=== PATIENT | female | born 1985 | race Caucasian/White ===

== ENCOUNTER 2016-08-28 16:49 | Outpatient (CLI) | payer OTHER ==
--- NOTE | 2016-08-28 18:28 | DIAGNOSTIC IMAGING REPORT ---
PROCEDURE: US OB RE-EVALUATION INDICATION: RE EVAL TECHNIQUE: Transabdominal hilton scale and color Doppler imaging was obtained of the gravid uterus. COMPARISON: OB ultrasound 06/19/2016 FINDINGS: Single live intrauterine is in vertex presentation. Regular heart rate at 140 beats per minute. Placenta is posterior and has a normal appearance without previa or abruption. The cervix is closed and measures 3.7 cm in length. Amniotic fluid volume is subjectively normal. Choroid plexus cysts seen previously have resolved. The ventricles, chest stomach bladder and kidneys are normal. IMPRESSION: 1. Single live intrauterine at 28 weeks and 4 days, SANGITA 11/16/2016 2. Choroid plexus cysts seen previously have resolved.
== END 2016-08-28 23:00 ==
LOC: US SRH 16:49
DX: Z34.80 Encounter for supervision of other normal pregnancy, unspecified trimester (principal); Z3A.28 28 weeks gestation of pregnancy

== ENCOUNTER 2016-11-15 04:45 | Inpatient (IN) | payer OTHER ==
[~2016-11-15] VITALS: Ht 152.4 cm; Wt 70.3 kg
[2016-11-15] VITALS (13 sets, daily range): BP systolic 26–146; BP diastolic 58–84
[2016-11-16 04:30] VITALS: BP 120/72
--- NOTE | 2016-11-16 07:37 | Provider's Discharge Care Plan ---
Problem, Goal, Plan Problem List 1. exam Goals: Improved health/wellness Instructions: Follow up as directed, Increase activity level
--- NOTE | 2016-11-16 07:37 | Provider's Discharge Care Plan ---
Problem, Goal, Plan Problem List 1. exam Goals: Improved health/wellness Instructions: Follow up as directed, Increase activity level
[2016-11-16] MEDS ORDERED: IBUPROFEN200 M1 PO (07:39)
[2016-11-16] MEDS ORDERED: PRENATAL1 TAB PO (07:39)
[2016-11-16] MEDS ORDERED: DOCUSATE SODIU100 MG PO (07:39)
[2016-11-16] MEDS ORDERED: ACETAMINOPHEN325 MG PO (07:39)
[2016-11-16 09:43] VITALS: BP 119/73
--- NOTE | 2016-11-16 15:20 | Progress Note ---
Subjective General Doing well this am. + void. Eating well. No chest pain, cough, or SOB. No large clots. Pain controlled. Physical Exam Vital Signs / I&Os Vital Signs Date Time Temp Pulse Resp B/P Pulse O2 O2 Flow FiO2 Ox Delivery Rate 11/16 0943 36.8 74 16 119/73 11/16 0430 36.8 71 18 120/72 11/15 2343 Room Air 11/15 2343 36.9 63 18 121/74 11/15 2100 36.9 11/15 1600 Room Air 11/15 1600 37.0 72 18 116/65 I&O 11/16 0000 11/15 1600 11/15 0800 Intake Total 300 1350 Output Total 1 Balance 299 1350 General Appearance Alert, Cooperative, No acute distress Lungs Clear to auscultation, Normal air movement Cardiovascular Regular rate and rhythm, Normal S1 and S2, 2/6 systolic murmur increased at the base. Abdomen Normal bowel sounds, Soft, No tenderness Extremities No edema Assessment and Plan Problem List 1. exam Plan Recovering well. Will plan for discharge later today.
== END 2016-11-16 11:30 | disposition home or self-care (01) | DRG 775 ==
LOC: OBC SRH 04:45 → OB SRH 04:45 → OBC SRH 05:00 → OB SRH 05:00
PROVIDERS: ADMIT Family Medicine
PROC: 0HQ9XZZ Repair Perineum Skin, External Approach (ICD-10-PCS; principal; 2016-11-15)
PROC: 10E0XZZ Delivery of Products of Conception, External Approach (ICD-10-PCS; principal; 2016-11-15)
DX: O62.3 Precipitate labor (principal); Z3A.39 39 weeks gestation of pregnancy; Z37.0 Single live birth; O70.0 First degree perineal laceration during delivery
CPT/HCPCS: 40010; 84038